=== PATIENT | female | born 1960 | race Caucasian/White ===

== ENCOUNTER 2017-01-19 11:16 | Observation (INO) | payer MEDICAID, OTHER ==
[~2017-01-19] VITALS: Ht 170.2 cm; Wt 86.0 kg
[2017-01-19 11:27] VITALS: BP 136/97
[2017-01-19] MEDS ORDERED: DULO60CA7 PO (12:07)
[2017-01-19] MEDS ORDERED: TRAZ100T15 PO (12:08)
[2017-01-19 12:16] LABS: ASPARTATE AMINO TRANSFERASE 19 U/L (15-37); BLOOD UREA NITROGEN 5 mg/dL (7-18)
[2017-01-19 12:17] LABS: HEMOGLOBIN 10.8 g/dL (11.7-16.4)
[2017-01-19 12:20] LABS: ACETAMINOPHEN < 2 mcg/mL (10-30)
[2017-01-19 12:42] LABS: ANISOCYTOSIS 2+; HYPOCHROMIA 1+; MICROCYTOSIS 1+; OVALOCYTES 1+; POIKILOCYTOSIS 1+; POLYCHROMASIA 1+
[2017-01-19 12:43] LABS: TARGET CELLS 1+
[2017-01-19] MEDS ORDERED: POTASSIUM CHLORIDE 20 MEQ TAB.ER.PRT PO ONE ×2 (13:00)
[2017-01-19] MEDS ORDERED: BISACODYL 10 MG SUPP PR PRN (13:00)
[2017-01-19] MEDS ORDERED: DOCUSATE 100 MG CAPSULE PO PRN (13:00)
[2017-01-19] MEDS ORDERED: POLYETHYLENE GLYCOL 17 GM PACKET PO PRN (13:00)
[2017-01-19 13:27] LABS: DAU SCREEN DISCLAIMER
[2017-01-19] MEDS ORDERED: POTASSIUM CHLORIDE 20 MEQ TAB.ER.PRT ONE (14:43)
[2017-01-19] MEDS ORDERED: KETOROLAC 30 MG/1 ML ONE (19:16)
[2017-01-19 19:48] VITALS: BP 134/87
[2017-01-19] MEDS ORDERED: DIAZ2TAB PO (19:55)
[2017-01-19] MEDS ORDERED: METH500T97 PO (19:55)
[2017-01-19] MEDS ORDERED: DIAZEPAM 2 MG TABLET PO ONE (20:30)
[2017-01-19] MEDS ORDERED: TRAZODONE 100MG TABLET PO SCH (21:00)
[2017-01-20] MEDS ORDERED: DULOXETINE 30 MG CAPSULE.DR PO SCH (09:00)
== END 2017-01-19 22:43 ==
LOC: ED 12:25 → EDIP 12:26 → ED 12:44 → 3E 19:29
PROVIDERS: ADMIT Internal Medicine; ATTEND Internal Medicine
DX: R45.851 Suicidal ideations (principal); J15.9 Unspecified bacterial pneumonia; E87.6 Hypokalemia; F32.9 Major depressive disorder, single episode, unspecified; F43.20 Adjustment disorder, unspecified; F15.10 Other stimulant abuse, uncomplicated; D50.9 Iron deficiency anemia, unspecified; Z80.0 Family history of malignant neoplasm of digestive organs; Z80.3 Family history of malignant neoplasm of breast
CPT/HCPCS: 36415; 80053; 80307; 80329; 83735; 85025; 99285; G0378; G0480

== ENCOUNTER 2019-09-27 16:35 | Inpatient (IN) | payer MEDICAID ==
[~2019-09-27] VITALS: Ht 170.2 cm; Wt 94.0 kg
[~2019-09-27 16:35] MED LIST changes: -DULO30CA2 PO; -METH10OR12 PO; -OXCA150T18 PO; -TRAZ150T62 PO
[2019-09-27] MEDS ORDERED: ONDANSETRON ODT 4 MG PO PRN (17:00)
[2019-09-27] MEDS ORDERED: POLYETHYLENE GLYCOL 17 GM PACKET PO PRN (17:00)
[2019-09-27] MEDS ORDERED: BISACODYL 10 MG SUPP PR PRN (17:00)
[2019-09-27] MEDS ORDERED: METHADONE ORAL.SOLN 1 MG/ML PO ONE (17:30)
[2019-09-27] MEDS ORDERED: METH10OR12 PO (17:45)
[2019-09-27 17:46] VITALS: BP 132/94
[2019-09-27] MEDS: PLEASE ENTER HEIGHT AND WEIGHT MC SCH (18:00)
[2019-09-27] MEDS ORDERED: METHADONE INTENSOL 10 MG/ML ORAL CONC PO ONE (19:00)
[2019-09-27 19:15] VITALS: BP 102/71
[2019-09-27] MEDS ORDERED: DULOXETINE 30 MG CAPSULE.DR PO SCH (21:00)
[2019-09-27] MEDS ORDERED: TRAZODONE 150MG TABLET ONE (22:27)
[2019-09-27] MEDS: TRAZODONE 150MG TABLET PO SCH (22:31)
[2019-09-28] MEDS: PLEASE ENTER HEIGHT AND WEIGHT MC SCH (02:00)
[2019-09-28 07:31] VITALS: BP 130/81
[2019-09-28] MEDS ORDERED: DULOXETINE 30 MG CAPSULE.DR PO SCH (09:00)
[2019-09-28] MEDS: METHADONE INTENSOL 10 MG/ML ORAL CONC PO SCH (10:08)
[2019-09-28] MEDS: POTASSIUM CHLORIDE 20 MEQ TAB.ER.PRT PO SCH (10:08)
[2019-09-28 19:16] VITALS: BP 133/84
[2019-09-28] MEDS ORDERED: ALUMINUM/MAG/SIMETHICONE 30 ML UDC ONE (19:57)
[2019-09-28] MEDS ORDERED: ALUMINUM/MAG/SIMETHICONE 30 ML UDC PO PRN (20:00)
[2019-09-28] MEDS: DULOXETINE 30 MG CAPSULE.DR PO SCH (20:00)
[2019-09-28] MEDS: OXCARBAZEPINE 150 MG TABLET PO SCH (20:00)
[2019-09-28] MEDS: TRAZODONE 150MG TABLET PO SCH (20:00)
[2019-09-28] MEDS ORDERED: TRAZODONE 150MG TABLET PO SCH (21:00)
[2019-09-29 07:04] VITALS: BP_SYST 124
[2019-09-29] MEDS: POTASSIUM CHLORIDE 20 MEQ TAB.ER.PRT PO SCH (08:51)
[2019-09-29] MEDS: METHADONE INTENSOL 10 MG/ML ORAL CONC PO SCH (08:52)
[2019-09-29 12:31] LABS: CHOL/HDL RATIO 4.2; LDL/HDL RATIO 2.3 (0.5-3.0)
[2019-09-29 12:55] LABS: FREE T4 (FREE THYROXINE) 1.08 ng/dL (0.76-1.46)
[2019-09-29] MEDS ORDERED: METHADONE INTENSOL 10 MG/ML ORAL CONC PO ONE (14:00)
[2019-09-29 19:50] VITALS: BP 119/84
[2019-09-29] MEDS: TRAZODONE 150MG TABLET PO SCH (20:39)
[2019-09-29] MEDS: DOCUSATE 100 MG CAPSULE PO PRN (20:39)
[2019-09-29] MEDS: DULOXETINE 30 MG CAPSULE.DR PO SCH (20:39)
[2019-09-29] MEDS: OXCARBAZEPINE 150 MG TABLET PO SCH (20:39)
[2019-09-30 07:01] VITALS: BP 149/95
[2019-09-30] MEDS ORDERED: METHADONE INTENSOL 10 MG/ML ORAL CONC PO ONE ×2 (09:30→11:30)
[2019-09-30] MEDS: POTASSIUM CHLORIDE 20 MEQ TAB.ER.PRT PO SCH (09:44)
[2019-09-30 19:35] VITALS: BP 114/82
[2019-09-30] MEDS: TRAZODONE 150MG TABLET PO SCH (20:24)
[2019-09-30] MEDS: DULOXETINE 30 MG CAPSULE.DR PO SCH (20:24)
[2019-09-30] MEDS: OXCARBAZEPINE 150 MG TABLET PO SCH (20:29)
[2019-10-01 07:33] VITALS: BP 113/77
[2019-10-01] MEDS: POTASSIUM CHLORIDE 20 MEQ TAB.ER.PRT PO SCH (08:21)
[2019-10-01] MEDS: ACETAMINOPHEN 325 MG TABLET PO PRN (08:36)
[2019-10-01] MEDS ORDERED: METHADONE INTENSOL 10 MG/ML ORAL CONC PO ONE (09:00)
[2019-10-01 19:38] VITALS: BP 104/61
[2019-10-01] MEDS: TRAZODONE 150MG TABLET PO SCH (20:04)
[2019-10-01] MEDS: OXCARBAZEPINE 150 MG TABLET PO SCH (20:05)
[2019-10-01] MEDS: DULOXETINE 30 MG CAPSULE.DR PO SCH (20:05)
[2019-10-02 07:34] VITALS: BP 104/69
[2019-10-02] MEDS: DOCUSATE 100 MG CAPSULE PO PRN (08:38)
[2019-10-02] MEDS: ACETAMINOPHEN 325 MG TABLET PO PRN ×2 (08:39→22:15)
[2019-10-02] MEDS: POTASSIUM CHLORIDE 20 MEQ TAB.ER.PRT PO SCH (08:39)
[2019-10-02] MEDS ORDERED: BUPRENORPHINE/NALOXONE 2-0.5MG SL SCH (09:00)
[2019-10-02] MEDS ORDERED: BUPRENORPHINE/NALOXONE 2-0.5MG SL ONE (13:30)
[2019-10-02 19:32] VITALS: BP 134/90
[2019-10-02] MEDS: TRAZODONE 150MG TABLET PO SCH (20:35)
[2019-10-02] MEDS: DULOXETINE 30 MG CAPSULE.DR PO SCH (20:35)
[2019-10-02] MEDS: OXCARBAZEPINE 150 MG TABLET PO SCH (20:36)
[2019-10-02] MEDS: BUPRENORPHINE/NALOXONE 2-0.5MG SL SCH (20:36)
[2019-10-03 07:52] VITALS: BP 151/92
[2019-10-03] MEDS: POTASSIUM CHLORIDE 20 MEQ TAB.ER.PRT PO SCH (08:22)
[2019-10-03] MEDS: ACETAMINOPHEN 325 MG TABLET PO PRN (08:23)
[2019-10-03] MEDS: BUPRENORPHINE/NALOXONE 2-0.5MG SL SCH ×2 (08:24→20:16)
[2019-10-03 19:59] VITALS: BP 104/77
[2019-10-03] MEDS: DULOXETINE 30 MG CAPSULE.DR PO SCH (20:15)
[2019-10-03] MEDS: TRAZODONE 150MG TABLET PO SCH (20:15)
[2019-10-03] MEDS: OXCARBAZEPINE 150 MG TABLET PO SCH (20:16)
[2019-10-04 07:21] VITALS: BP 119/82
[2019-10-04] MEDS: POTASSIUM CHLORIDE 20 MEQ TAB.ER.PRT PO SCH (08:07)
[2019-10-04] MEDS: ACETAMINOPHEN 325 MG TABLET PO PRN (08:07)
[2019-10-04] MEDS: BUPRENORPHINE/NALOXONE 2-0.5MG SL SCH ×2 (08:08→19:54)
[2019-10-04] MEDS ORDERED: TRAZ150T62 PO (13:39)
[2019-10-04] MEDS ORDERED: OXCA150T18 PO (13:39)
[2019-10-04] MEDS ORDERED: DULO30CA2 PO (13:39)
[2019-10-04 19:26] VITALS: BP 111/78
[2019-10-04] MEDS: TRAZODONE 150MG TABLET PO SCH (19:54)
[2019-10-04] MEDS: DULOXETINE 30 MG CAPSULE.DR PO SCH (19:54)
[2019-10-04] MEDS: OXCARBAZEPINE 150 MG TABLET PO SCH (19:54)
[2019-10-05 07:26] VITALS: BP 105/70
[2019-10-05] MEDS: BUPRENORPHINE/NALOXONE 2-0.5MG SL SCH (08:23)
[2019-10-05] MEDS: POTASSIUM CHLORIDE 20 MEQ TAB.ER.PRT PO SCH (08:23)
== END 2019-10-05 10:20 | disposition home or self-care (01) | DRG 885 ==
LOC: 3E 17:16
PROVIDERS: ADMIT Psychiatry & Neurology Psychosomatic Medicine; ATTEND Psychiatry & Neurology Psychosomatic Medicine
DX: F31.30 Bipolar disorder, current episode depressed, mild or moderate severity, unspecified (principal); R45.851 Suicidal ideations; F41.1 Generalized anxiety disorder; F43.10 Post-traumatic stress disorder, unspecified; G47.00 Insomnia, unspecified; K59.00 Constipation, unspecified; I10 Essential (primary) hypertension; F15.21 Other stimulant dependence, in remission; F11.21 Opioid dependence, in remission; Z91.5 Personal history of self-harm; Z88.2 Allergy status to sulfonamides; Z81.1 Family history of alcohol abuse and dependence; Z82.5 Family history of asthma and other chronic lower respiratory diseases; Z80.3 Family history of malignant neoplasm of breast; Z80.0 Family history of malignant neoplasm of digestive organs; Z82.49 Family history of ischemic heart disease and other diseases of the circulatory system; Z81.3 Family history of other psychoactive substance abuse and dependence; Z72.89 Other problems related to lifestyle; Z79.899 Other long term (current) drug therapy
CPT/HCPCS: 36415; J0572; 80061; 84439; 84443

== ENCOUNTER → 2019-09-27 | Emergency (ER) | payer MEDICAID ==
[~2019-09-27] VITALS: Ht 170.2 cm; Wt 91.0 kg
[~2019-09-27] MED LIST: CLON1TAB11 PO; DIAZ2TAB PO; DULO30CA2 PO; DULO60CA7 PO; IRON15TA3 PO; METH10OR12 PO; METH500T97 PO; OXCA150T18 PO; POTA20PA25 PO; TRAZ-137 PO; TRAZ150T62 PO
[2019-09-27 11:52] VITALS: BP 124/68
--- NOTE | 2019-09-27 12:30 | NUR ---
REPORT FROM TERESA HUMPHREYS. URINE COLLECTED/SENT TO LAB. SOCKS AND WARM BLANKET PROVIDED. PT PLACED IN GOWN, BELONGINGS TO LOCKER, ROOM SECURE. SITTER AT DOORWAY. ED DIET TRAY ORDERED-PT STATES SHE HAS NOT EATEN SINCE LAST NIGHT.
[2019-09-27 12:51] LABS: AMPHETAMINE SCREEN, URINE Negative (Negative); BARBITURATE SCREEN, URINE Negative (Negative); BENZODIAZEPINE SCREEN, URINE Negative (Negative); CANNABINOID SCREEN, URINE Negative (Negative); COCAINE SCREEN, URINE Negative (Negative); METHADONE SCREEN, URINE Positive (Negative); OPIATE SCREEN, URINE Negative (Negative)
--- NOTE | 2019-09-27 13:06 | NUR ---
ED DIET TRAY PROVIDED. SITTER AT DOORWAY. PT RESTING QUIETLY.
[2019-09-27 13:12] LABS: ALBUMIN 3.6 g/dL (3.4-5.0); ANION GAP 3 mmol/L (5-15); CALCIUM 9.4 mg/dL (8.5-10.1); CHLORIDE 103 mmol/L (98-107); CREATININE 0.87 mg/dL (0.55-1.02); SALICYLATE LEVEL 2.1 mg/dL (2.8-20.0)
[2019-09-27 13:53] LABS: MEAN CORPUSCULAR HEMOGLOBIN 22.8 pg (27.0-34.8); MEAN CORPUSCULAR HGB CONC 31.1 g/dL (32.4-35.8); MEAN CORPUSCULAR VOLUME 73.4 fL (80-100); MEAN PLATELET VOLUME 7.8 fL (7.4-10.4); PLATELET COUNT 418 x10^3/uL (130-400); RED BLOOD COUNT 5.48 x10^6/uL (3.82-5.3); RED CELL DISTRIBUTION WIDTH 18.3 % (9.6-15.2)
[2019-09-27 13:56] LABS: MD SCAN
[2019-09-27 13:57] LABS: BASOPHILS # (AUTO) 0.05 x10^3/uL (0-0.1); BASOPHILS % (AUTO) 1 % (0-1); EOSINOPHILS # (AUTO) 0.23 x10^3/uL (0-0.4); EOSINOPHILS % (AUTO) 4 % (1-7); LYMPHOCYTES # (AUTO) 1.89 x10^3/uL (1-3.4); LYMPHOCYTES % (AUTO) 33 % (22-44); MONOCYTES # (AUTO) 0.38 x10^3/uL (0.2-0.8); MONOCYTES % (AUTO) 7 % (2-9); NEUTROPHILS # (AUTO) 3.27 x10^3/uL (1.8-6.8); NEUTROPHILS % (AUTO) 56 % (42-75)
--- NOTE | 2019-09-27 13:59 | NUR ---
ALL RESULTS BACK, PT FOR RECHECK.
--- NOTE | 2019-09-27 14:45 | NUR ---
THROUGHPUT RN: PT INFORMATION FAXED TO [facility], [facility], AND [facility].
--- NOTE | 2019-09-27 14:59 | NUR ---
PT RESTING QUIETLY, WATCHING TV. SITTER AT DOORWAY. PT ON LEGAL HOLD AT THIS TIME, AWAITING ADMISSION.
--- NOTE | 2019-09-27 15:20 | NUR ---
THROUGHPUT RN: PER [facility], PRIOR AUTH NEEDED FROM PT'S INSURANCE. ONCE GRANTED, PT CAN BE ADMITTED.
--- NOTE | 2019-09-27 17:11 | NUR ---
KLONOPIN GIVEN PER ORDER. MEAL TRAY PROVIDED BEFORE TRANSPORT TO FLOOR. REPORT TO 3E.
== END | disposition other institution (70) ==
LOC: ED 13:04
DX: R45.851 Suicidal ideations (principal); R45.850 Homicidal ideations; F32.9 Major depressive disorder, single episode, unspecified
CPT/HCPCS: 36415; 80048; 80307; 82040; 85025; 99284